=== PATIENT | female | born 1945 | race Caucasian/White ===

== ENCOUNTER 2017-03-18 07:36 | Day surgery (SDC) | payer MEDICARE, BC ==
--- NOTE | 2017-03-14 16:02 | HP ---
AMENDED REPORT NOW INCLUDES COSIGNER DESIGNATION - ESIGNED BEFORE ADJUSTMENT CC: Paris Michel PA-C; Dr. Geoff Simmons; Dr. Cliff Machado in [place] * ADMISSION HISTORY AND PHYSICAL: DATE OF ADMISSION: 03/18/17 ATTENDING SURGEON: Dr. Marina Cody * (DICTATED BY JANET HICKS) CHIEF COMPLAINT: Hyperparathyroidism. HISTORY OF PRESENT ILLNESS: This is a 71-year-old generally healthy female who was noted to have an elevated serum calcium in November of 2015. Upon repeat check it was high normal. However, on subsequent recheck in October of this year, it was again noted to be elevated. An intact PTH on 10/08/16 was elevated at 12.1. The patient's vitamin D was measured recently and found to be high normal. She has had a fracture of the left wrist after a hard fall on ice, but no other fracture history. DEXA scan done on 11/26/16 did show a significant osteoporosis. She underwent ultrasound of the neck on 02/10/17 showing multiple nodules in the right thyroid measuring up to 1.3 cm and also a dominant nodule on the left thyroid measuring up to 2 cm. Two of the dominant nodules on the right and that on the left were biopsied by FNA and found to be benign. The ultrasound also identified a hypoechoic nodule inferior to the right thyroid measuring 0.7 x 0.5 x 0.5 cm. A nuclear medicine SPECT scan was also performed showing increased and delayed uptake corresponding to the right lower pole parathyroid. The patient was seen in the office by Dr. Cody on 07/23. Neither her nor Dr. Simmons's physical exam demonstrated any particular nodules. Dr. Cody has reviewed her workup and discussed the indications, risks, benefits, and alternatives of surgery. The patient understands the expected perioperative course. She would like to proceed as scheduled with parathyroidectomy. PAST MEDICAL HISTORY: Paget's disease of the vulva (noninvasive), osteoporosis. PAST SURGICAL HISTORY: She has had 2 excision procedures for the Paget's disease of the vulva, but still has recurrences and/or flare-ups. She has treated these in the past with imiquimod, but most of the time they are self limited. She is followed for this by Dr. Machado in [place]. Her only other surgeries have been tonsillectomy remotely and bilateral cataract extraction. CURRENT MEDICATIONS: 1. Imiquimod 5% topically p.r.n. (uses rarely). 2. Clobetasol 0.005% p.r.n. 3. Lidocaine gel p.r.n. 4. Vitamin B12 500 mcg daily. 5. Vitamin D3 1000 units daily. DRUG ALLERGIES: None known. FAMILY HISTORY: Negative for anesthesia problems, bleeding or clotting disorders. Also, negative for endocrinopathies. SOCIAL HISTORY: The patient lives alone. 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 She is a former smoker of up to a half a pack per day and quit 15 years ago. She drinks alcohol rarely and denies other drug use. REVIEW OF SYSTEMS: General: No recent constitutional symptoms or acute illnesses. Her weight has been stable. Cardiovascular: No chest pain, palpitations, or history of hypertension. No history of heart murmur. Respiratory: No history of asthma, chronic cough or shortness of breath. GI: No problems reported. Colonoscopy done approximately 1 year ago reportedly normal. : No additions to above. PROCUREMENT INSPECTOR: No additions to above other than she has had normal Pap smear within the past year as well as mammogram. Endocrine: No diabetes. No thyroid dysfunction, though by ultrasound she does have nontoxic multinodular goiter. PHYSICAL EXAMINATION GENERAL: Well-nourished, well-developed female, who appears younger than her stated age of 71. VITAL SIGNS: Height 64 inches, weight 116 pounds, blood pressure 130/72, pulse 72, respirations 16. HEENT: Pupils are equal and round, reactive. EOMs intact. No conjunctival pallor. Oropharynx: Teeth in good repair. No intraoral lesions. NECK: No lymphadenopathy, thyromegaly, or masses. Specifically, no dominant nodules. LUNGS: Clear to auscultation. No rales or wheezes. HEART: Regular rate and rhythm. No murmur noted. BREASTS: Not examined. ABDOMEN: Soft, nontender to palpation. No palpable masses or organomegaly. GENITALIA: Not examined. RECTAL: Not examined. BACK: No spinous process or CVA tenderness. EXTREMITIES: No edema. NEUROLOGICAL: Grossly intact. SKIN: Warm and dry. No suspicious rashes or lesions noted. IMPRESSION: Hyperparathyroidism. PLAN: Parathyroidectomy. JANET HICKS [id number]/[facility] #: [id number] ALFON[place]
[~2017-03-18 07:36] MED LIST: Buffered Lidocaine 0.9% SYRIN* 5 ML/SYR SYRINGE INTRADERM ONE; Sodium Citrate/Citric Acid* 15 ML UDC PO ONE
[2017-03-18] MEDS ORDERED: Buffered Lidocaine 0.9% SYRIN* 5 ML/SYR SYRINGE ONE (07:52)
[2017-03-18] MEDS ORDERED: Sodium Citrate/Citric Acid* 15 ML UDC ONE (07:52)
[2017-03-18] MEDS ORDERED: Bupivacaine 0.25% SDV* 30 ML ONE (09:03)
[2017-03-18] MEDS ORDERED: fentaNYL* 50 MCG/ML 2 ML VIAL (100 MCG VIAL) IV PRN (09:07)
[2017-03-18] MEDS ORDERED: Lidocaine 2% PF * 5 ML VIAL ONE (09:29)
[2017-03-18] MEDS ORDERED: Propofol* 10 MG/ML 20 ML BTL IV PUSH ONE ×2 (09:29→11:10)
[2017-03-18] MEDS ORDERED: Dexamethasone IV* 4 MG/ML 1 ML (4 MG) ONE (09:29)
[2017-03-18] MEDS ORDERED: fentaNYL* 50 MCG/ML 2 ML VIAL (100 MCG VIAL) ONE (09:29)
[2017-03-18 09:45] LABS: Calcium (PTH Intact) 10.8 mg/dL (8.6-10.3)
[2017-03-18 11:39] LABS: Calcium (PTH Intact) 10.2 mg/dL (8.6-10.3)
--- NOTE | 2017-03-18 12:53 | PN ---
Progress Note - Progress Note Date of Service: 03/18/17 Note: Brief Operative Note: Preop Dx: Hyperparathyroidism Postop Dx: same Procedure: Excision parathyroid (2 glands) Anesthesia: GET Surgeon: Escobar Asst: JANET Nelson; JANET Jacinto EBL: < 50 ml Fluids: Drains: none Specimen: Right upper and lower pole parathyroids Findings: dictated
[2017-03-18] MEDS ORDERED: Acetaminophen ADULT LIQ* 650 MG/20.3 ML UDC PO PRN (12:54)
[2017-03-18] MEDS ORDERED: HYDROcodone/ACET. 7.5/325 LIQ* 15 ML UDC PO PRN (12:55)
[2017-03-18 13:11] LABS: Calcium (PTH Intact) 10.3 mg/dL (8.6-10.3)
[2017-03-18 14:39] VITALS: BP 130/73
--- NOTE | 2017-03-19 05:22 | OP ---
CC: [facility]; Dr. Erich Callejas OPERATIVE REPORT: DATE OF OPERATION: 03/18/17 DATE OF : 43 SURGEON: Marina Cody MD. CLINICAL RESEARCH ASSISTANT: Ophelia. PRE-OP DIAGNOSIS: Hyperparathyroidism. POST-OP DIAGNOSIS: Hyperparathyroidism. OPERATIVE PROCEDURE: Parathyroidectomy. INDICATIONS: Ms. Zuñiga is a 71-year-old woman, who presented to the office with mildly symptomati c hyperparathyroidism, prompting a plan for surgical intervention. On the morning of surgery, she had a PTH drawn preoperatively. The initial intact PTH was 11.2, shortly thereafter a rapid PTH was ashutosh wn, which was 8.6. DESCRIPTION OF PROCEDURE: She then went into the operating room, was placed on the OR table in supin e position and given general anesthesia. The neck was prepped and draped in the usual sterile fashio n. After infiltrating with a local anesthetic, an incision was made along the line that had been mar ked preoperatively and subcutaneous tissue was divided with electrocautery through the platysma muscl e. Flaps were developed superiorly to the thyroid notch and inferiorly to the sternal notch. Then th e strap muscles were divided along the midline and that was done with electrocautery. The strap musc les on the right side were retracted laterally and dissected free from around the thyroid gland using a combination of blunt and sharp dissection. Then, the thyroid gland was elevated medially to expos e the retrothyroid tissue and the search was made for an abnormal parathyroid in the region where it had been identified preoperatively, which was the right lower pole. Almost immediately a structure co nsistent with an abnormal parathyroid was visualized and this was dissected free from surrounding tis sues using a combination of clips and electrocautery dissection. Once it was out a rapid PTH and int act PTH were drawn. These results came back with a level of 9 for the rapid PTH and intact PTH also came back elevated at 8.9. So, the decision was made to proceed with search for a second abnormal pa rathyroid and through retracting tissue more in the middle portion of the thyroid gland another struc ture consistent with an abnormal parathyroid was identified. This was likewise dissected free from s urrounding tissue. Before it was removed, a search was made more extensively for additional possible parathyroid tissue and it should be mentioned that a sample of the first specimen was sent for froze n section to confirm that it was indeed parathyroid. The frozen section came back showing that the fi rst specimen was indeed parathyroid tissue though the second candidate for an abnormal parathyroid gl and was excised and handed off, a piece of this was also sent for frozen section. This also came marlon k showing parathyroid tissue and after it had been removed from the neck the rapid PTH was sent. Thi s eventually came back with a level of less than 0.6 and finally the intact PTH was sent as well and came back at 1.7. In the meantime, the operative bed was searched for bleeding, this was controlled with a combination of clips and Surgicel, and once hemostasis appeared adequate, closure was accompli shed. This was done with 3-0 Polysorb to reapproximate the strap muscles, 4-0 Vicryl was used to nikki pproximate the platysma muscle and then the skin was closed with 4-0 Prolene in a subcuticular fashio n. Steri-Strips and a dry fluffy dressing were applied. All sponges and instrument counts were harper ect. The patient tolerated the procedure well and was transferred to the Recovery in a stable condit ion. [id number]/[facility] #: [id number]
== END 2017-03-18 15:03 | disposition home or self-care (01) ==
LOC: OR 07:36
PROVIDERS: ATTEND Surgery
DX: E21.3 Hyperparathyroidism, unspecified (principal); M81.0 Age-related osteoporosis without current pathological fracture
CPT/HCPCS: 36415; 83970; 84300; 88305; 88331; A9270-GY; J1100; J2704; J3010

== ENCOUNTER 2018-07-17 08:33 | Inpatient (IN) | payer MEDICARE, BC ==
--- NOTE | 2018-07-12 13:56 | HP ---
HISTORY AND PHYSICAL: DATE OF ADMISSION/SURGERY: 07/17/18 DATE OF OFFICE VISIT: 07/12/18 ATTENDING SURGEON: Dr. Mancilla.* (DICTATED BY JANET ESCALERA) PROCEDURE: Right total hip replacement. CHIEF COMPLAINT: Right hip pain. HISTORY OF PRESENT ILLNESS: Halina is a 73-year-old female with a longstanding history of right hip pain due to end-stage osteoarthritis. She has tried physical therapy, use of NSAIDs, activity modification. She has failed conservative treatment options and has elected to proceed with surgery. She is scheduled to undergo a right total hip replacement. PAST MEDICAL HISTORY: Paget disease of vulva, hypercalcemia due to hyperparathyroidism. PAST SURGICAL HISTORY: Vaginal surgery for Paget disease x2 in 2003 and 2008, tonsillectomy, and thyroidectomy. MEDICATIONS: 1. A and D zinc oxide. 2. Biotin 1000 mcg. 3. Clobetasol propionate 0.05%. 4. Diclofenac sodium 75 mg. 5. Hemp oil. 6. 5%. 7. Lidocaine 2%. 8. Turmeric root. 9. Vitamin B1 100 mg. 10. Vitamin B12 500 mcg. 11. Vitamin D3 1000 units. ALLERGIES: No known drug allergies. FAMILY HISTORY: She reports positive family history of heart troubles. No diabetes and no cancer. SOCIAL HISTORY: She lives alone. She is retired. She is a former smoker. She occasionally consumes alcohol and denies recreational drug use. REVIEW OF SYSTEMS: A complete 14-point review of systems was obtained, other than HPI - General: Negative for fevers, chills, night sweats, or known anesthesia problems. HEENT: Negative for headaches, lightheadedness, or syncopal episodes. Integumentary: Negative for abrasions, lesions, or open wounds. Cardiac: Negative for chest pain, palpitations, or edema. Negative for hypertension. Pulmonary: Negative for shortness of breath with exertion, chronic cough, or COPD. GI: Negative for nausea, vomiting, diarrhea, constipation, or GERD. : Negative for nocturia, urinary frequency, urinary urgency, history of UTIs, or kidney problems. Musculoskeletal: Positive for current complaint. She also has a history of wrist fracture. Negative for chronic or intermittent neck or back pain. Neuro: Negative for paresthesias, numbness, history of seizure, stroke or epilepsy. Endocrine: Negative for diabetes. Positive for thyroid issues. Hematologic: Negative for easy bruising , bleeding, anemia, excessive bleeding, or history of DVT. ID: Negative for history of MRSA, hepatitis C, or HIV. PHYSICAL EXAMINATION GENERAL: Well-developed, well-nourished 73-year-old female, in no acute distress. Alert and oriented x3. Appropriate mood and affect. VITAL SIGNS: Pulse is 74, blood pressure is 116/72, temperature is 97.8. She has a BMI of 19.4. HEENT: Head is normocephalic. NECK: Supple with no palpable lymph nodes. LUNGS: Clear to auscultation bilaterally. No wheezes, rales, or rhonchi. CARDIAC: Regular rate and rhythm. S1, S2. No murmurs, rubs, or gallops. ABDOMEN: Positive bowel sounds throughout. Soft, nontender. NEUROLOGIC: Cranial nerves II through XII are grossly intact. Sensation is intact to light touch distally. MUSCULOSKELETAL: She lacks internal rotation. She does have pain in the groin with motion. She has 90 degrees of flexion. ASSESSMENT: Osteoarthritis, right hip. PLAN: She is scheduled to undergo right total hip replacement on 07/17/[address] Mancilla. She will return to the office 10 to 14 days postoperatively for followup and suture removal. JANET ESCALERA [id number]/[facility] #: [id number] MTDJosé
[~2018-07-17 08:33] MED LIST changes: +Acetaminophen IV 1GM/100ML * 1,000 MG/100 ML VIAL IVPB ONE; -Buffered Lidocaine 0.9% SYRIN* 5 ML/SYR SYRINGE INTRADERM ONE; +Buffered Lidocaine 1% SYRIN* 1 ML/SYRINGE INTRADERM ONE; +Dexamethasone IV* 4 MG/ML 1 ML (4 MG) IV SLOW PU ONE; +Dexamethasone IV* 4 MG/ML 1 ML (4 MG) ONE; +Famotidine IV* 10 MG/ML 2 ML (20 mg) IV ONE; +Famotidine IV* 10 MG/ML 2 ML (20 mg) ONE; +Gabapentin CAP(*) 300 MG ONE; +Gabapentin CAP(*) 300 MG PO ONE; +Lactated Ringers 1000 ML Bag* 1,000 ML IV SCH; -Sodium Citrate/Citric Acid* 15 ML UDC PO ONE; +ceFAZolin 2 GM in NS PREMIX(*) 0 GM/0 ML BAG IVPB ONE; +celeCOXIB CAP* 100 MG ONE; +celeCOXIB CAP* 100 MG PO ONE
--- OUTSIDE RECORDS SUMMARY | 2018-07-17 08:36 | XMS REPORT | Continuity of Care Document ---
:1945 External Reference #:[id number] Author Name JOSE F Karimi Address [address] [place] [id number] Care Team Providers Name Role Phone Paris Michel PA Primary Care Physician Unavailable Payers Date Identification Numbers Payment Provider Subscriber Policy Number: [id number] Medicare Halina Zuñiga PayID: [id number] [address] [facility] [place] [address] Expires: 2018 Policy Number: [id number] Medicare Halina Zuñiga PayID: [id number] [address] [place] [address] Policy Number: [id number] [facility] Halina Zuñiga PayID: [id number] [address] [place] [address] Advance Directives Description No Information Available Problems Date Description Provider Status Onset: 07/08/2015 Other extraarticular fracture of lower Jeremiah Mancilla M.D. 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 Vitamin B12 Active Tablets 500mcg 1 by mouth Unknown 0 every day Vitamin B-1 Active Tablets 100mg 1 by mouth Unknown 0 every day Vitamin D3 Active Tablets 1000Unit 1 by mouth Unknown 0 every day Clobetasol Active Cream 0.05% as directed Gonzalo Propionate 0 MD Cliff Lidocaine HCL Active Gel 2% as directed Erika Sánchez MD Imiquimod Active Cream 5% as directed Erika Sánchez MD A & D Zinc Active Cream apply Unknown Oxide 0 topically as needed Turmeric Root Active Powder uad Unknown 0 Biotin Active Chewtabs 1000mcg Unknown 0 Vitamin Active Tablets 1000Unit take one Unknown D-1000 0 capsule/tab Maximum let daily Strength by mouth Diclofenac Active Tablets 75mg take [address] tablet twice a day with food Hydrocodone-A Hx Tablets 5-325mg 14tab 1 or 2 Marina Jethro cetaminophen 7 - s tablets by MD Escobar Unknown mouth every 4-6 hours as needed for moderately severe pain No Active Hx Veronica Medications 6 - Woo, Jessica 7 Immunizations Description No Information Available Vital Signs Date Vital Result Comment 07/12/2018 9:43am Height 64 inches 5'4" Weight 113.00 lb Heart Rate 74 /min BP Systolic 116 mmHg BP Diastolic 72 mmHg Body Temperature 97.8 F Pain Level 5 BMI (Body Mass Index) 19.4 kg/m2 06/15/2018 11:02am Height 64 inches 5'4" Weight 114.00 lb Heart Rate 76 /min BP Systolic Recheck 124 mmHg BP Diastolic Recheck 82 mmHg Respiratory Rate 16 /min Body Temperature 98.4 F BMI (Body Mass Index) 19.6 kg/m2 03/29/2017 1:24pm Heart Rate 72 /min Respiratory Rate 16 /min Body Temperature 97.8 F 03/14/2017 10:02am Heart Rate 72 /min BP Systolic 130 mmHg BP Diastolic 72 mmHg Respiratory Rate 16 /min Body Temperature 97.5 F 03/11/2017 9:09am Height 64 inches 5'4" Weight 116.00 lb Heart Rate 60 /min BP Systolic Sitting 116 mmHg BP Diastolic Sitting 72 mmHg Respiratory Rate 16 /min Body Temperature 97.9 F BMI (Body Mass Index) 19.9 kg/m2 09/26/2015 1:57pm Height 64 inches 5'4" Weight 116.00 lb Heart Rate 76 /min BP Systolic Recheck 112 mmHg BP Diastolic Recheck 74 mmHg Respiratory Rate 16 /min Body Temperature 98.0 F BMI (Body Mass Index) 19.9 kg/m2 08/19/2015 9:47am Height 64 inches 5'4" Weight 116.00 lb Heart Rate 76 /min BP Systolic Recheck 130 mmHg BP Diastolic Recheck 84 mmHg Respiratory Rate 16 /min Body Temperature 98.0 F BMI (Body Mass Index) 19.9 kg/m2 07/29/2015 1:26pm Height 64 inches 5'4" Weight 115.00 lb Heart Rate 80 /min BP Systolic Recheck 118 mmHg BP Diastolic Recheck 76 mmHg Respiratory Rate 16 /min Body Temperature 97.9 F BMI (Body Mass Index) 19.7 kg/m2 07/18/2015 11:18am Height 64 inches 5'4" Weight 116.00 lb Heart Rate 76 /min BP Systolic Recheck 128 mmHg BP Diastolic Recheck 84 mmHg Respiratory Rate 16 /min Body Temperature 98.0 F BMI (Body Mass Index) 19.9 kg/m2 07/08/2015 1:26pm Height 64 inches 5'4" Weight 115.00 lb Heart Rate 76 /min BP Systolic Recheck 118 mmHg BP Diastolic Recheck 76 mmHg Respiratory Rate 16 /min Body Temperature 97.7 F BMI (Body Mass Index) 19.7 kg/m2 06/30/2015 12:05pm Height 64 inches 5'4" Weight 115.00 lb Heart Rate 75 /min BP Systolic 133 mmHg BP Diastolic 85 mmHg BMI (Body Mass Index) 19.7 kg/m2 Results Test Date Facility Test Result H/L Range Note Laboratory test [facility] PTH Intact < 6.0 Low 6.0- 9.3 finding [address] Intraoperative pmol/[place] [address] [phone] Pthi [facility] PTH Intact 1.7 pmol/L N 1.3-9.[address] [place] [address] [phone] Calcium (PTH Intact) 10.3 mg/dL N 8.6-10.3 Laboratory test 03/18/2017 [facility] PTH Intact 9.0 pmol/L N 6.0-9.[address] [place] [address] [phone] Pthi 03/18/2017 [facility] Calcium (PTH 10.2 mg/dL N 8.6-10.[address] Intact) [place] [address] [phone] PTH Intact 8.9 pmol/L N 1.3-9.3 Laboratory test 03/18/2017 [facility] Surgical Pathology SEE RESULT [address] [place] [address] [phone] Laboratory test 03/18/2017 [facility] PTH Intact 8.6 pmol/L N 6.0- [address] Intraoperative 9.3 [place] [address] [phone] Laboratory test 03/18/2017 [facility] Sodium 135 mmol/L N 133 - finding [address] [place] [address] [phone] Pthi 03/18/2017 [facility] PTH Intact 11.2 High 1.3- [address] pmol/L 9.3 [place] [address] [phone] Calcium (PTH Intact) 10.8 mg/dL High 8.6-10.3 Laboratory test 02/23/2017 [facility] Cytology SEE RESULT [address] Non-[employer]ence [place] [address] [phone] 1 SEE RESULT BELOW Name: HALINA ZUÑIGA : [address]: Marina Cody MD Acct: [id number] Unit: [id number] AGE: 71 Location: OR Re03/18/17 SEX: F [place] [facility] [place]: [id number] NOHEMI: 03/18/17-[address]: Marina Cody MD REQ: [id number] RECD: 03/18/17 STATUS: SOUT _ ORDERED: FS 1ST PER SPEC/2, LEVEL 4/4 FINAL DIAGNOSIS 1. Parathyroid, right lower pole, biopsy: -- Hypercellular parathyroid tissue (0.1 g). 2. Parathyroid, right, upper pole, biopsy: -- Hypercellular parathyroid tissue (0.1 g). 3. Parathyroid, right lower pole, biopsy: -- Hypercellular parathyroid tissue (0.1 g). 4. Parathyroid, right upper pole, biopsy: -- Hypercellular parathyroid tissue and benign lymph node (0.2 g). PATHOLOGY SURGICAL CONSULT Frozen section (FS)/Touch Prep (TP)/Gross Consult (GC) FS1) Parathyroid mass, right lower lobe, excision: Hypercellular parathyroid. (EP) Findings discussed with Dr Cody 03/18/17 at 1136. FS2) Parathyroid mass, right upper pole, excision: Parathyroid tissue present. (EP) Findings discussed with Dr Cody 03/18/17 at 1213. PRE-OPERATIVE DIAGNOSIS Primary hyperparathyroidism CONTINUED ON NEXT PAGE * ML=Testing performed at Main Lab DEPARTMENT OF PATHOLOGY, [address] [place] [address] Victoriano Berry M.D. Director [facility] # [id number] RUN DATE: 03/21/17 [facility] LAB LIVE PAGE 2 Patient: HALINA ZUÑIGA [id number] (Continued) GROSS DESCRIPTION (Continued) GROSS DESCRIPTION 1. The specimen is received fresh labeled, Parathyroid Right Mass Lower Pole, and consists of a less than 0.1 g, 0.4 x 0.4 x 0.1 cm pereira-red ovoid soft tissue fragment which is entirely submitted for frozen section microscopy. The frozen section residue is entirely submitted in cassette FS. 2. The specimen is received fresh labeled, Parathyroid Right Mass Upper Pole, and consists of a 0.1 g, 0.9 x 0.4 x 0.4 cm aggregate of pereira-red ovoid soft tissue fragments with adherent pereira-red fat. The specimen is entirely submitted for frozen section microscopy. The frozen section residue is entirely submitted in cassette FS. 3. The specimen is received in formalin labeled, Parathyroid Mass Right Lower Pole, and consists of a 0.1 g, 0.9 x 0.7 x 0.4 cm pereira ovoid soft tissue fragment with a small amount of adherent yellow fat. The specimen is inked, serially sectioned and entirely submitted in one cassette. 4. The specimen is received in formalin labeled, Parathyroid Mass Right Upper Pole, and consists of a 0.2 g, 1.0 x 0.7 x 0.4 cm aggregate of pereira-red irregular soft tissue fragments and yellow fat the largest of which measures up to 1.0 cm. The largest fragment is inked, bisected and the specimen is submitted entirely in one cassette. Signed (signature on file) Victoriano Berry MD 1350 END OF REPORT * ML=Testing performed at Main Lab DEPARTMENT OF PATHOLOGY, [address] [place] [address] Victoriano Berry M.D. Director [facility] # [id number] 2 Verbal to [id number] by [id number] at 1022 on 03/18/17. Results read back accurately. REVISED REPORT --- Revised on 03/18/17 1023 --- Rapid PTH previously reported as: 8.6 pmol/L 3 SEE RESULT BELOW Name: HALINA ZUÑIGA : [address]: Geoff Simmons MD Acct: [id number] Unit: [id number] AGE: 71 Location: SP Re02/23/17 SEX: F Status: REG REF SPEC: [id number] NOHEMI: 02/23/17-[address]: Geoff Simmons MD REQ: [id number] RECD: 02/23/17 STATUS: BUD FRAUSTO DR: Alphonso Frye MD _ ORDERED: FNA-IMG GUID BX/3, CY ADEQ-ADDL P/2, CYTO ADEQ-1ST P/3 FINAL DIAGNOSIS 1) Thyroid, right superior lateral, Ultrasound-guided fine needle aspiration: --Benign thyroid nodule- colloid/hyperplastic type ([place] Class II). 2) Thyroid, right inferior, Ultrasound-guided fine needle aspiration: --Benign thyroid nodule- involutional type ([place] Class II). 3) Thyroid, left, Ultrasound-guided fine needle aspiration: --Benign thyroid nodule- colloid/hyperplastic type ([place] Class II). 1) The specimen demonstrates moderate watery colloid, a modest amount of benign appearing follicular epithelium arranged in uniform sheets, medium sized follicles and only occasional small groups. No features of papillary carcinoma are seen. In this clinical setting the risk of malignancy is less than 3%. Clinical management of this thyroid nodule should be based on clinical and radiographic features as well as the above. 2) The specimen demonstrates moderate watery proteinaceous fluid, a modest amount of benign appearing follicular CONTINUED ON NEXT PAGE * ML=Testing performed at Main Lab DEPARTMENT OF PATHOLOGY, [address] [place] [address] Victoriano Berry M.D. Director [facility] # [id number] RUN DATE: 02/24/17 [facility] LAB LIVE PAGE 2 Patient: HALINA ZUÑIGA [id number] (Continued) SPECIMEN COMMENTS (Continued) epithelium arranged in uniform sheets, medium sized follicles and only occasional small groups. Abundant pigmented and non-pigmented macrophages are seen in the background. No features of papillary carcinoma are seen. In this clinical setting the risk of malignancy is less than 3%. Clinical management of this thyroid nodule should be based on clinical and radiographic features as well as the above findings. 3) The specimen demonstrates moderate watery colloid, a modest amount of benign appearing follicular epithelium arranged in uniform sheets, medium sized follicles and only occasional small groups. No features of papillary carcinoma are seen. In this clinical setting the risk of malignancy is less than 3%. Clinical management of this thyroid nodule should be based on clinical and radiographic features as well as the above. #1. THYROID RIGHT - US GUIDED RIGHT LATERAL SUPERIOR THYROID FINE NEEDLE ASPIRATION, #2. THYROID RIGHT - US GUIDED RIGHT INFERIOR THYROID FINE NEEDLE ASPIRATION, #3. THYROID LEFT - US GUIDED LEFT THYROID FINE NEEDLE ASPRIRATION CLINICAL HISTORY #1) Right lateral thyroid nodule. #2) right inferior thyroid nodule. #3) Left thyroid nodule. IMMEDIATE INTERPRETATION 1) Pass 1-inadequate, pass 2-adequate 2) Pass 1-inadequate, pass 2-adequate 3) Pass 1-adequate GROSS DESCRIPTION #1) Ultrasound guided, fine needle aspiration x 2 passes with 4 Alcohol fixed slide(s). #2) Ultrasound guided, fine needle aspiration x 2 passes with 5 Alcohol fixed slide(s). #3) Ultrasound guided, fine needle aspiration x 1 pass with 3 Alcohol fixed slide(s). Signed (signature on file) Victoriano Berry MD 1051 END OF REPORT * ML=Testing performed at Main Lab DEPARTMENT OF PATHOLOGY, [address] [place] [address] Victoriano Berry M.D. Director [facility] # [id number] Procedures Date Code Description Status 03/18/2017 72634 Parathyroidectomy Or Exploration Of Parathyroid Completed 03/18/2017 03466 Parathyroidectomy Or Exploration Of Parathyroid Completed 11/26/2016 243431978 Bone Mineral Density Test Completed 07/08/2015 04266 Short Arm Cast Application Completed 06/30/2015 18723 CLST TRMT Distal Radial FX Completed Encounters Type Date Location Provider Dx Diagnosis Office Visit 06/15/2018 Orthopedic Jeremiah Mancilla, M16.11 Unilateral primary 10:30a [facility] AT Jessica osteoarthritis, Adria right hip M16.12 Unilateral primary osteoarthritis, left hip M16.0 Bilateral primary osteoarthritis of hip Office Visit 03/11/2017 Surgical Marina Morelos E21.0 Primary 9:00a [facility] MD Escobar hyperparathyroidism [facility] Plan of Treatment Future Appointment(s):07/17/2018 12:00 pm - JANET De La Vega at [facility]/17/2018 12:00 pm - Jeremiah Mancilla M.D. at [facility]/10/2018 11:00 am - Jeremiah Mancilla M.D. at [facility] AT [place]
--- OUTSIDE RECORDS SUMMARY | 2018-07-17 08:36 | XMS REPORT | Continuity of Care Document ---
:1945 External Reference #:[id number] Author Name Babita Flores Care Team Providers Name Role Phone Paris Michel PA Primary Care Physician Unavailable Payers Date Identification Numbers Payment Provider Subscriber Policy Number: [id number] Medicare Halina Zuñiga PayID: [id number] [address] [facility] [address] Expires: 2018 Policy Number: [id number] Medicare Halina Crowleyre PayID: [id number] [address] [place] [address] Policy Number: [id number] [facility] Halina Zuñiga PayID: [id number] [address] [place] [address] Advance Directives Description No Information Available Problems [...] Active Hx Veronica Medications 6 - Woo, M.DJeff 7 Immunizations Description No Information Available Vital [...] Test Result H/L Range Note Laboratory test [facility] PTH Intact < 6.0 Low 6.0- 9.3 finding [address] Intraoperative pmol/[place] [address] [phone] Pthi [facility] PTH Intact 1.7 pmol/L N 1.3-9.[address] [place] [address] [phone] Calcium (PTH Intact) 10.3 mg/dL N 8.6-10.3 Laboratory test 03/18/2017 [facility] PTH Intact 9.0 pmol/L N 6.0-9.[address] [place] [address] [phone] Pthi 03/18/2017 [facility] Calcium (PTH 10.2 mg/dL N 8.6-10.[address] Intact) [place] [address] [phone] PTH Intact 8.9 pmol/L N 1.3-9.3 Laboratory test 03/18/2017 [facility] Surgical Pathology SEE RESULT [address] [place] [address] [phone] Laboratory test 03/18/2017 [facility] PTH Intact 8.6 pmol/L N 6.0- [address] Intraoperative 9.3 [place] [address] [phone] Laboratory test 03/18/2017 [facility] Sodium 135 mmol/L N 133 - finding [address] [place] [address] [phone] Pthi 03/18/2017 [facility] PTH Intact 11.2 High 1.3- [address] pmol/L 9.3 [place] [address] [phone] Calcium (PTH Intact) 10.8 mg/dL High 8.6-10.3 Laboratory test 02/23/2017 [facility] Cytology SEE RESULT [address] Non-[employer]aw [place] [address] [phone] 1 SEE RESULT BELOW Name: LASHAYHALINA : [address]: Marina Cody MD Acct: [id number] Unit: [id number] AGE: 71 Location: OR Re03/18/17 SEX: F Status: DEP [facility] SPEC: [id number] NOHEMI: 03/18/17-[address]: Marina Cody MD REQ: [id number] RECD: 03/18/17 STATUS: SOUT _ ORDERED: FS [...] performed at Main Lab DEPARTMENT OF PATHOLOGY, [address] [place] [address] Victoriano Berry M.D. Director [facility] # [id number] RUN DATE: 03/21/17 [facility] LAB LIVE PAGE 2 Patient: HALINA ZUÑIGA [id number] (Continued) GROSS DESCRIPTION (Continued) GROSS DESCRIPTION 1. [...] Signed (signature on file) Victoriano Berry MD 8670 END OF REPORT * ML=Testing performed at Main Lab DEPARTMENT OF PATHOLOGY, [address] [place] [address] Victoriano Berry M.D. Director [facility] # [id number] 2 Verbal to [id number] by at 1022 on 03/18/17. Results read back accurately. REVISED REPORT --- Revised on 03/18/17 1023 --- Rapid PTH previously reported as: 8.6 pmol/L 3 SEE RESULT BELOW Name: HALINA ZUÑIGA : [address]: Geoff Simmons MD Acct: [id number] Unit: [id number] AGE: 71 Location: SP Re02/23/17 SEX: F Status: REG REF SPEC: [id number] NOHEMI: 02/23/17-5 [facility] [address]: Geoff Simmons MD REQ: [id number] RECD: 02/23/17 STATUS: BUD FRAUSTO DR: Alphonso Frye MD _ ORDERED: FNA-IMG GUID BX/3, CY ADEQ-ADDL P/2, CYTO ADEQ-1ST P/3 FINAL DIAGNOSIS 1) Thyroid, right superior lateral, Ultrasound-guided fine needle aspiration: --Benign thyroid nodule- colloid/hyperplastic type ([place] Class II). 2) Thyroid, right inferior, Ultrasound-guided fine needle aspiration: --Benign thyroid nodule- involutional type ([place] Class II). 3) Thyroid, left, Ultrasound-guided fine needle aspiration: --Benign thyroid nodule- colloid/hyperplastic type ([place] Class II). 1) The specimen demonstrates moderate [...] performed at Main Lab DEPARTMENT OF PATHOLOGY, [address] [place] [address] Victoriano Berry M.D. Director [facility] # [id number] RUN DATE: 02/24/17 [facility] LAB LIVE PAGE 2 Patient: HALINA ZUÑIGA [id number] (Continued) SPECIMEN COMMENTS (Continued) epithelium arranged in [...] performed at Main Lab DEPARTMENT OF PATHOLOGY, [address] [place] [address] Victoriano Berry M.D. Director [facility] # [id number] Procedures Date Code Description Status 03/18/2017 14568 Parathyroidectomy Or Exploration Of Parathyroid Completed 03/18/2017 95953 Parathyroidectomy Or Exploration Of Parathyroid Completed 11/26/2016 500402180 Bone Mineral Density Test Completed 07/08/2015 76165 Short Arm Cast Application Completed 06/30/2015 99074 CLST TRMT Distal Radial FX Completed Encounters Type Date Location Provider Dx Diagnosis Office Visit 06/15/2018 Orthopedic Jeremiah Mancilla, M16.11 Unilateral primary 10:30a [facility] AT [place] osteoarthritis, Adria right hip M16.12 Unilateral primary osteoarthritis, left hip M16.0 Bilateral primary osteoarthritis of hip Office Visit 03/11/2017 Surgical Marina Morelos E21.0 Primary 9:00a [facility] hyperparathyroidism [facility] Plan of Treatment Future Appointment(s):08/15/2018 4:00 pm - Jeremiah Mancilla M.D. at [facility]/11/2019 12:00 pm - JANET De La Vega at [facility] [place]07/17/2018 12:00 pm - Jeremiah Mancilla M.D. at [facility] [place]
[2018-07-17] MEDS ORDERED: Dexamethasone IV* 4 MG/ML 1 ML (4 MG) ONE (08:52)
[2018-07-17] MEDS ORDERED: Famotidine IV* 10 MG/ML 2 ML (20 mg) ONE (08:53)
[2018-07-17] MEDS ORDERED: celeCOXIB CAP* 100 MG ONE (08:53)
[2018-07-17] MEDS ORDERED: Buffered Lidocaine 1% SYRIN* 1 ML/SYRINGE INTRADERM ONE (08:53)
[2018-07-17] MEDS ORDERED: Gabapentin CAP(*) 300 MG ONE (08:53)
[2018-07-17] MEDS ORDERED: ceFAZolin 2 GM in NS PREMIX(*) 2 GM/100 ML BAG IVPB ONE (08:53)
[2018-07-17 09:34] LABS: Activated Partial Thrombo Time 28.7 seconds (26.0-36.3); INR 0.9 (0.77-1.02)
[2018-07-17] MEDS ORDERED: Acetaminophen IV 1GM/100ML * 100 ML ONE (09:52)
[2018-07-17] MEDS ORDERED: Ondansetron INJ* 2 MG/ML VIAL ONE (11:08)
[2018-07-17] MEDS ORDERED: Midazolam* 1 MG/ML 5 ML VIAL (5 MG) ONE (11:08)
[2018-07-17] MEDS ORDERED: Propofol* 10 MG/ML 20 ML BTL ONE (11:08)
[2018-07-17] MEDS ORDERED: KETAMINE HCL* 50 MG/ML 10 ML VIAL ONE (11:08)
[2018-07-17] MEDS ORDERED: ROPIVACAINE 5 MG/ML 30 ML BTL (0.5%) ONE (11:31)
[2018-07-17] MEDS ORDERED: Ropivacaine (OR use only) 2 MG/ML 10 ML ONE (11:31)
[2018-07-17] MEDS ORDERED: Ondansetron INJ* 2 MG/ML VIAL IV PRN ×2 (13:14→14:22)
[2018-07-17] MEDS ORDERED: Naloxone* 0.4 MG/ML 1 ML VIAL IV PRN (13:14)
[2018-07-17] MEDS ORDERED: fentaNYL* 50 MCG/ML 2 ML VIAL (100 MCG VIAL) IV PRN (13:14)
[2018-07-17] MEDS ORDERED: DiMENhydriNATE IV* 50 MG/ML VIAL IV PUSH PRN (13:14)
[2018-07-17] MEDS ORDERED: HYDROmorphone INJ1* 1 MG/ML SYRINGE IV PRN (13:14)
[2018-07-17] MEDS ORDERED: diPHENhydraMINE IV* 50 MG/ML 1 ml VIAL (BENADRYL) IV PRN (14:22)
[2018-07-17] MEDS ORDERED: Magnesium Hydroxide LIQ* 30 ML UDC PO PRN (14:22)
[2018-07-17] MEDS ORDERED: diPHENhydraMINE PO* 25 MG PO PRN (14:22)
[2018-07-17] MEDS ORDERED: Ondansetron ODT TAB* 4 MG PO PRN (14:22)
[2018-07-17] MEDS ORDERED: Morphine VIAL* 4 MG/ML VIAL (1 ml vial) IV PRN (14:22)
[2018-07-17] MEDS ORDERED: Cyclobenzaprine TAB* 10 MG PO PRN (14:22)
[2018-07-17] MEDS ORDERED: traMADol TAB* 50 MG PO SCH (15:00)
[2018-07-17] MEDS ORDERED: Acetaminophen TAB* 325 MG PO SCH ×2 (15:00→19:00)
[2018-07-17] MEDS ORDERED: fentaNYL* 50 MCG/ML 2 ML VIAL (100 MCG VIAL) ONE (16:50)
[2018-07-17] MEDS ORDERED: traMADol TAB* 50 MG ONE (16:51)
--- NOTE | 2018-07-17 17:23 | OP ---
DATE OF OPERATION: 07/17/18 - ROOM #348 DATE OF : 43 SURGEON: Jeremiah Mancilla MD SUMMER COUNSELOR: Ramona Pickens RPA ANESTHESIA: Regional spinal sedation. PRE-OP DIAGNOSIS: Osteoarthritis, right hip. POST-OP DIAGNOSIS: Osteoarthritis, right hip. OPERATIVE PROCEDURE: Right total hip arthroplasty. ESTIMATED BLOOD LOSS: 150 cc. COMPLICATIONS: None. HARDWARE: Narciso #9 M/L Taper with reduced neck and standard offset +0, 32 mm head, 50 mm Continuum cup with two screws, 15-degree elevated liner. SUMMARY: Ms. Zuñiga is a 73-year-old female who has been having troubles with right hip pain. She unfortunately also has a bit of right-sided sciatica, but with rotation of the hip, we could very specifically re-create pain down and in the groin. We talked about conservative treatment, but with the pain she had, she was starting to not walk as much and not do as much activity, so she was very interested in having the hip fixed, so that it would not stop her or limit her. Risks of surgery such as infection, scar formation, stiffness, DVT , pulmonary embolism, hardware failure, leg length discrepancy, and instability were some of the risks discussed. She had been declared medically optimized and wished to proceed. DESCRIPTION OF PROCEDURE: The patient had a block placed in the holding area and was brought to the OR. Spinal anesthesia was introduced and a Mckee catheter was placed. She was then rolled into the left lateral decubitus position and axillary roll was placed. Right hip area was prepped and then draped. Incision was made centered over the greater trochanter and was carried distally for about 5 cm and then proximally for about 5 cm as well. Incision was carried down through the skin and subcutaneous tissues. Small bleeders encountered were ligated using electrocautery. Fascia was easily found and sharply incised. She had musculature coming down most of the way and this was bluntly split using finger dissection. With internal rotation, nice exposure of the backside of the hip was obtained. Trochanteric bursa was taken down using electrocautery and Hohmann was placed under the gluteus medius/gluteus minimus. Piriformis could be easily palpated and piriformis and short external rotators were taken down together with capsule. Small T-capsulotomy was made coming upwards along the neck and femoral head could then be seen. Small gush of joint fluid was also encountered. Head was then easily dislocated. Femoral neck was marked using the cutting guide and femoral head was resected. Anterior C-retractor was placed over the anterior lip of the acetabulum and a Hohmann was placed inferiorly. This gave nice exposure to the acetabulum. Sherrie was used to grasp the labrum and then used to sharply excise the labrum. Beginning with a 44 reamer, she was progressively deepened a little bit and then expanded. Her femoral head had measured 47 mm in diameter and this corresponded fairly well as I had measured her at about 48 and templated for a 50 cup. At 49, had a nice [id number] fit and a 50 cup was called for. Cup was then impacted into place and nice solid bite was obtained. Two screws were placed and again solid bite was obtained. Trial liner was placed and attention was turned to the proximal femur. Box osteotome was used to open the femoral canal and the canal finder was easily passed. Beginning with a 4-broach, she was progressively broached. With an 11, I came down and seated quite nicely, but I thought that this would be long as the center of rotation was above the tip of the greater trochanter. She was trialed with a minus and was clearly long. 11 was removed and a 10 broach was then placed and then sunk snuggly. Femoral neck was marked to the level that the 10 broach was seated to and then broach was removed. Reciprocating saw was used to recut the femoral neck and 10 broach was replaced. She was trialed with a -3.5 and she was almost there. This was repeated with a 9 and with the 9 broach being securely seated and then the femoral neck having been recut, she was trialed with a reduced neck and a 0 head and her leg length appeared perfect. She also had good stability, but when she hyperflexed to 135 degrees, I could feel how the head would leave her out some. She would start to dislocate at about 45 degrees of internal rotation with the hip flexed to 90 degrees and was very similar in full adduction. Broach trial instrumentation was removed and elevated. Rim liner posteriorly was placed. A #9 stem was called for and nicely impacted into place. She was again trialed with a 0 head and had the same wonderful motion, stability and leg length. The 0 head was then impacted into place. Hip was again copiously pulse lavaged and the T-capsulotomy was repaired together to the backside of the greater trochanter. The hip was again closely pulse lavaged and fascia was repaired using interrupted #1 Vicryl sutures. Lastly, the pulse lavage was used and the subcutaneous tissue was reapproximated with 2- 0 Vicryl, skin was closed using mary kay. Sterile dressing and abduction pillow were applied in the OR. The patient was then rolled onto the hospital bed and was stable on transfer to the recovery room. [id number]/[facility] #: [id number] ALFONSO
[2018-07-17] MEDS: D5W 1/2 NS 1000 ML BAG* 1,000 ML IV SCH (18:16)
[2018-07-17] MEDS: oxyCODONE TAB* 5 MG TAB PO PRN (18:45)
[2018-07-17] MEDS ORDERED: Warfarin TAB(*) 6 MG PO ONE (19:00)
[2018-07-17] MEDS ORDERED: ceFAZolin 1 GM ADVAN(*) 1 GM in NS 0.9% 50 ML* 50 ML IVPB SCH (20:30)
[2018-07-17] MEDS: Docusate CAP* 100 MG PO SCH (20:59)
[2018-07-17] MEDS: Magnesium Hydroxide LIQ* 30 ML UDC PO SCH (20:59)
[2018-07-17] MEDS: ceFAZolin 1 GM in Dextrose (*) 1 GM/50 ML BAG IVPB SCH (20:59)
[2018-07-17] MEDS: traMADol TAB* 50 MG PO SCH (23:07)
[2018-07-18] MEDS: oxyCODONE TAB* 5 MG TAB PO PRN ×4 (00:30→14:43)
[2018-07-18] MEDS: Acetaminophen TAB* 325 MG PO SCH ×2 (03:17→10:05)
[2018-07-18] MEDS: D5W 1/2 NS 1000 ML BAG* 1,000 ML IV SCH (03:21)
[2018-07-18] MEDS: traMADol TAB* 50 MG PO SCH ×3 (05:02→17:39)
[2018-07-18] MEDS: ceFAZolin 1 GM in Dextrose (*) 1 GM/50 ML BAG IVPB SCH ×2 (05:02→12:57)
[2018-07-18 07:52] LABS: Hematocrit 28 % (35-47); Hemoglobin 9.7 g/dl (12.0-16.0); Platelet Count 194 10^3/ul (150-450)
[2018-07-18 07:58] LABS: INR 1.23 (0.77-1.02)
[2018-07-18] MEDS ORDERED: NS 0.9% 500 ML* 500 ML IV SCH (08:00)
[2018-07-18 08:07] LABS: BUN/Creatinine Ratio 16.1 (8-20); Calcium 8.1 mg/dL (8.6-10.3); EGFR Non-African American 105.8 (>60); Potassium 3.8 mmol/L (3.5-5.0)
--- NOTE | 2018-07-18 09:07 | PN ---
Progress Note - Progress Note Date of Service: 07/18/18 SOAP: Subjective: []Patient seen and examined at bedside today, right hip pain is well controlled. Denies CP, SOB, dizziness, nausea. Last night she felt dizzy with change of position, she has not yet been out of bed today. Objective: []General: well appearing, NAD RLE: Right hip dressing CDI, thigh is soft, DF/PF intact, sensation intact to light touch distally, DP2+, Calves supple and nontender without erythema, edema or palpable cords Assessment: []POD 1 sp right total hip arthroplasty, Dr Maniclla Plan: []WBAT Posterior hip precautions PT/OT heparin bridge to Coumadin. Coumadin 6 mg today 500 ml NS bolus ordered for soft BP Vital Signs Temp 98.6 F 07/18/18 07:36 Pulse 72 07/18/18 07:36 Resp 16 07/18/18 08:03 BP 94/58 07/18/18 07:36 Pulse Ox 100 07/18/18 07:36 Intake & Output 07/17/18 07/18/18 07/18/18 18:59 06:59 18:59 Intake Total 3750 2281 Output Total 1250 1150 Balance 2500 1131 Weight 112 lb 6.4 oz Intake: IV Fluids 3750 946 D5W 1/2 NS 946 LR 3700 NS 50ML, Cefazolin 2G 50 IVPB 105 ABX - CEFAZOLIN 105 Oral 1230 Output: Mckee 1100 1150 Estimated Blood Loss 150 Laboratory Last Values Hgb 9.7 g/dl (12.0-16.0) L 07/18/18 07:38 Hct 28 % (35-47) L 07/18/18 07:38 Plt Count 194 10^3/ul (150-450) 07/18/18 07:38 MPV 7.0 fL (7.4-10.4) L 07/18/18 07:38 INR (Anticoag Therapy) 1.23 (0.77-1.02) H 07/18/18 07:38 APTT 28.7 seconds (26.0-36.3) 07/17/18 09:19 Sodium 132 mmol/L (135-145) L 07/18/18 07:38 Potassium 3.8 mmol/L (3.5-5.0) 07/18/18 07:38 Chloride 101 mmol/L (101-111) 07/18/18 07:38 Carbon Dioxide 27 mmol/L (22-32) 07/18/18 07:38 Anion Gap 4 mmol/L (2-11) 07/18/18 07:38 BUN 9 mg/dL (6-24) 07/18/18 07:38 Creatinine 0.56 mg/dL (0.51-0.95) 07/18/18 07:38 Est GFR ( Amer) 128.0 (>60) 07/18/18 07:38 Est GFR (Non-Af Amer) 105.8 (>60) 07/18/18 07:38 BUN/Creatinine Ratio 16.1 (8-20) 07/18/18 07:38 Glucose 125 mg/dL (70-100) H 07/18/18 07:38 Calcium 8.1 mg/dL (8.6-10.3) L 07/18/18 07:38
[2018-07-18] MEDS: Docusate CAP* 100 MG PO SCH (09:28)
[2018-07-18] MEDS: Heparin VIAL(*) 5000 UNITS/ML VIAL (FIVE THOUSAND) SUBCUT SCH ×2 (09:28→14:42)
[2018-07-18] MEDS: Magnesium Hydroxide LIQ* 30 ML UDC PO SCH (09:28)
[2018-07-18 15:54] VITALS: BP 103/57
[2018-07-18] MEDS ORDERED: Warfarin TAB(*) 6 MG PO ONE (17:00)
--- NOTE | 2018-07-18 20:41 | DS ---
DISCHARGE SUMMARY: DATE OF ADMISSION: 07/17/18 DATE OF DISCHARGE: 07/18/17 PROVIDER: Dr. Jeremiah Mancilla.* (DICTATED BY JANET MCGRATH) PRE-OP DIAGNOSIS: Osteoarthritis of the right hip. OPERATIVE PROCEDURE: Right total hip arthroplasty. HISTORY: Ms. Zuñiga is a 73-year-old female who has been having troubles with right hip pain as well as right-sided sciatica pain. She failed conservative management and elected to undergo right total hip arthroplasty. HOSPITAL COURSE: The patient was admitted to [facility] on . She underwent a right total hip arthroplasty without complications. Postop day 1, she is well-appearing, in no acute distress. Hip dressing was changed. Incision is clean, dry and intact. Neurovascularly intact distally. Temperature 99.0, pulse rate 66, respiratory rate 17, oxygen saturation 100 on room air, blood pressure 100/64. The patient seemed to be medically and orthopedically stable for discharge to home. DISCHARGE MEDICATIONS: Include: 1. Cosamin ASU capsule 1 p.o. t.i.d. 2. Vitamin B 100 mg p.o. q.a.m. 3. Turmeric 1 tab p.o. q.a.m. 4. Biotin 1 tab p.o. q. a.m. 5. Nutritional yeast 1 tab p.o. q.a.m. 6. Stop diclofenac potassium. 7. 0-10 mg Coumadin as dosed per INR 9. Cyanocobalamin 500 mcg p.o. q.a.m. 10. Cholecalciferol 5000 units p.o. daily. 11. Calcium carbonate. 12. Mag Ox. 13. Zinc sulfate 1200 mg p.o. daily. 14. Acetaminophen 975 mg p.o. q.8 hours p.r.n. 15. Aspirin 325 mg p.o. daily, to be taken until INR is therapeutic between 2 and 3. 16. Docusate 100 mg p.o. b.i.d. 17. Oxycodone 5 mg tabs 1 tab p.o. q.4 hours p.r.n. max daily dose of 4. 18. Tramadol 50 mg p.o. q.6 hours, max daily dose of 6. 19. Warfarin 2 mg tabs 1 to 3 tabs daily, dose depends on INR. 20. Zofran 4 mg q.6 hours p.r.n. DISCHARGE PLAN: The patient will be weightbearing as tolerated. She will continue posterior hip precautions. She will have home physical therapy as the home physical therapist will also do INR blood draws on Mondays and . She will not have home nursing. She will need to make an appointment with orthopedic office to remove the mary kay in 10 to 12 days. Her first lab draw is 07/20/18. For this first lab draw, she will need to go to the outpatient lab to have an INR as well as the sodium drawn, thereafter home care will check her INR. Coumadin dosing 4 mg on 07/18/18 and 07/19/18. Recheck INR on 07/20/18 for further dosing instructions. Please also take 1 tablet of aspirin 325 mg on 07/19/18 along with Coumadin if INR is not therapeutic. Stop aspirin once INR is 2 to 3. Pain control, Ultram 50 mg one tablet every 6 hours as needed for pain, max of 8 in day, oxycodone 5 mg 1 tab every 4 hours, max of 4 in a day. Hold oxycodone and Ultram for sedation. Wean off oxycodone first then Ultram to Tylenol only if pain allows. Follow up with Dr. Mancilla in 4 weeks. Call for an appointment. JANET MCGRATH [id number]/[facility] #: [id number] [place]
== END 2018-07-18 18:05 | disposition home health service (06) | DRG 470 ==
LOC: AA 08:33 → SSU 17:57
PROVIDERS: ADMIT Orthopaedic Surgery; ATTEND Orthopaedic Surgery
PROC: 0SR904Z Replacement of Right Hip Joint with Ceramic on Polyethylene Synthetic Substitute, Open Approach (ICD-10-PCS; principal; 2018-07-17 10:15)
DX: M16.11 Unilateral primary osteoarthritis, right hip (principal); Z68.1 Body mass index [BMI] 19.9 or less, adult; C51.9 Malignant neoplasm of vulva, unspecified; E21.3 Hyperparathyroidism, unspecified; Z79.899 Other long term (current) drug therapy; Z82.49 Family history of ischemic heart disease and other diseases of the circulatory system; Z87.891 Personal history of nicotine dependence
CPT/HCPCS: 36415; 72170; 80048; 85014; 85018; 85049; 85610; 85730; A9270-GY; C1713; C1776; G8978-GP-CK; G8979-GP-CI; G8987-GO-CI; G8988-GO-CI; G8989-GO-CI; J0690; J1100; J1644; J2250; J2405; J2704; J2795; J3010